=== PATIENT | female | born 2000 ===

== ENCOUNTER → 2020-10-01 10:43 | Outpatient (BNVA) | payer OTHER, SELFPAY | PROVIDERS: PCP Internal Medicine; Referring Provider Internal Medicine; Visit Provider Advanced Practice Midwife | DX: Z30.431 Encounter for routine checking of intrauterine contraceptive device (principal); K42.9 Umbilical hernia without obstruction or gangrene | CPT/HCPCS: 99212 ==

== ENCOUNTER → 2020-11-13 14:53 | Outpatient (BNVA) | payer OTHER, SELFPAY | PROVIDERS: Visit Provider Advanced Practice Midwife | DX: Z30.431 Encounter for routine checking of intrauterine contraceptive device (principal) | CPT/HCPCS: 99212 ==

== ENCOUNTER → 2021-02-14 11:27 | Outpatient (BNVA) | payer OTHER, SELFPAY | PROVIDERS: PCP Internal Medicine; Visit Provider Advanced Practice Midwife | DX: Z30.431 Encounter for routine checking of intrauterine contraceptive device (principal) | CPT/HCPCS: 99212 ==

== ENCOUNTER 2021-03-03 11:57 | Outpatient (REF) | payer OTHER, SELFPAY ==
--- NOTE | ~2021-03-03 | US_ITS ---
EXAMINATION: US PELVIS, COMPLETE CLINICAL INFORMATION: Evaluate IUD position. COMPARISON: None. TECHNIQUE: Transabdominal and transvaginal imaging was performed. FINDINGS: LMP: 01/25/2021 Uterus is anteverted , measuring 7.2 x 4.1 x 5.2 cm. No focal uterine lesion. IUD present, which appears to be appropriately positioned within the endometrial canal. Endometrial thickness 0.4 cm. Right ovary measures 3.2 x 2.3 x 2.1 cm. Volume 8.1 mL.. Left ovary measures 3.3 x 2 x 2.2 cm. Volume 7.6 mL. Bilateral ovaries appear unremarkable. Follicles present. Small free fluid in the cul-de-sac. US/US pelvic and transvaginal IMPRESSION: IUD present, which appears to be appropriately positioned within the endometrial canal. Bilateral ovaries appear unremarkable.
== END 2021-03-03 11:58 | disposition home or self-care (01) ==
LOC: HO.US 11:57
PROVIDERS: PCP Internal Medicine; Visit Provider Advanced Practice Midwife
DX: Z30.431 Encounter for routine checking of intrauterine contraceptive device (principal)
CPT/HCPCS: 76830; 76856

== ENCOUNTER 2022-01-15 14:09 | Outpatient (REF) | payer OTHER, SELFPAY ==
[2022-01-16 00:59] LABS: CT PCR NOT DETECTED (Not Detect.); NG PCR NOT DETECTED (Not Detect.)
[2022-01-16 12:16] LABS: BV Int Neg Control Negative (Negative); BV Int Pos Control Positive (Positive)
== END 2022-01-15 14:10 | disposition home or self-care (01) ==
LOC: HO.LAB 14:09
PROVIDERS: PCP Physician Assistant; Visit Provider Advanced Practice Midwife
DX: N76.0 Acute vaginitis (principal)
CPT/HCPCS: 81003; 87480; 87491; 87510; 87591; 87660; 99212

== ENCOUNTER 2022-01-22 12:19 | Outpatient (REF) | payer OTHER, SELFPAY ==
[2022-01-22 13:43] LABS: Hematocrit 32.9 % (37.0-47.0); Hemoglobin 9.7 g/dl (12.0-16.0); Mean Corpuscular HGB Conc 29.5 g/dl (31.0-35.0); Mean Corpuscular Volume 71.2 fL (80.0-98.0); Mean Platelet Volume 12.7 fL (9.4-12.3); Platelet Count 280 X10*3/uL (160-400); Red Blood Count 4.62 X10*6/uL (4.20-5.50); Red Cell Distribution Width 16.4 % (11.0-16.0); White Blood Count 7.2 X10*3/uL (4.8-10.8)
[2022-01-22 13:52] LABS: Estimated Average Glucose 105 mg/dL; Hemoglobin A1c % 5.3 %
[2022-01-22 14:23] LABS: Ferritin 6 ng/mL (10-122)
[2022-01-22 14:28] LABS: Alanine Aminotransferase 14 U/L (0-31); Albumin Level 4.7 g/dL (3.5-5.0); Alkaline Phosphatase 77 U/L (39-117); Anion Gap 13 (12-20); Aspartate Amino Transferase 15 U/L (5-31); Bilirubin Total 1.9 mg/dL (0.0-1.0); Blood Urea Nitrogen 15 mg/dL (9-16); Calcium 9.5 mg/dL (8.4-10.2); Carbon Dioxide 21 mmol/L (22-29); Chloride 107 mmol/L (96-108); Estimated Glomerular Filt Rate > 60; Glucose Fasting 79 mg/dL (60-99); Iron 34 mcg/dL (30-160); Potassium 4.4 mmol/L (3.3-5.1); Sodium 137 mmol/L (135-145); Total Protein 7.9 g/dL (6.5-8.0)
[2022-01-22 14:52] LABS: Percent Iron Saturation 7 % (15-50); Total Iron Binding Capacity 458 mcg/dL (228-428); Unsaturated Iron Binding 424 ug/dL
== END 2022-01-22 12:20 | disposition home or self-care (01) ==
LOC: HO.LAB 12:19
PROVIDERS: PCP Physician Assistant; Visit Provider Physician Assistant
DX: D50.9 Iron deficiency anemia, unspecified (principal); R63.4 Abnormal weight loss
CPT/HCPCS: 36415; 80053; 82728; 83036; 83540; 84443; 85027

== ENCOUNTER 2022-02-18 15:19 | Outpatient (REF) | payer OTHER, SELFPAY ==
[2022-02-19 07:54] LABS: CT PCR NOT DETECTED (Not Detect.); NG PCR NOT DETECTED (Not Detect.)
[2022-02-19 09:43] LABS: BV Int Neg Control Negative (Negative); BV Int Pos Control Positive (Positive)
== END 2022-02-18 15:20 | disposition home or self-care (01) ==
LOC: HO.LAB 15:19
PROVIDERS: PCP Physician Assistant; Visit Provider Advanced Practice Midwife
DX: Z01.419 Encounter for gynecological examination (general) (routine) without abnormal findings (principal); N92.0 Excessive and frequent menstruation with regular cycle; Z11.3 Encounter for screening for infections with a predominantly sexual mode of transmission; Z11.8 Encounter for screening for other infectious and parasitic diseases; Z88.1 Allergy status to other antibiotic agents; Z88.0 Allergy status to penicillin
CPT/HCPCS: 87480; 87491; 87510; 87591; 87660; 88142

== ENCOUNTER 2022-03-31 13:39 | Outpatient (REF) | payer OTHER, SELFPAY ==
[2022-03-31 14:24] LABS: Hematocrit 37.7 % (37.0-47.0); Hemoglobin 11.3 g/dl (12.0-16.0); Mean Corpuscular Hemoglobin 23.1 pg (27.0-33.0); Mean Corpuscular Volume 77.1 fL (80.0-98.0); Mean Platelet Volume 12.5 fL (9.4-12.3); Platelet Count 267 X10*3/uL (160-400); Red Blood Count 4.89 X10*6/uL (4.20-5.50); Red Cell Distribution Width 18.7 % (11.0-16.0)
[2022-03-31 14:47] LABS: Iron 63 mcg/dL (30-160); Percent Iron Saturation 19 % (15-50); Total Iron Binding Capacity 339 mcg/dL (228-428); Unsaturated Iron Binding 276 ug/dL
[2022-03-31 15:47] LABS: Appearance Urine HAZY; Color Urine DK YELLOW; Glucose Urine UA NEG (NEG); Leukocyte Esterase Urine TRACE (NEG); Nitrite Urine NEG (NEG); PH 5.5 (5.0-8.0); Specific Gravity - Urine >= 1.030 (1.005-1.025); Urine Blood NEG (NEG); Urine Ketones 40 MG/DL (NEG); Urine Protein TRACE MG/DL (NEG-TRACE)
[2022-03-31 16:13] LABS: WBC Urine 0 /HPF (0-4)
[2022-03-31 16:14] LABS: Mucus Urine 4+ /LPF; Renal Epithelial Cells Urine 2+ /LPF; Squamous Epithelial Cell Urine 2+ /LPF
== END 2022-03-31 13:40 | disposition home or self-care (01) ==
LOC: HO.LAB 13:39
PROVIDERS: PCP Physician Assistant; Visit Provider Physician Assistant
DX: D50.9 Iron deficiency anemia, unspecified (principal)
CPT/HCPCS: 36415; 81001; 83540; 85027

== ENCOUNTER 2022-09-08 15:27 | Outpatient (REF) | payer OTHER, SELFPAY ==
[2022-09-09 19:04] LABS: CT PCR NOT DETECTED (Not Detect.); NG PCR NOT DETECTED (Not Detect.)
[2022-09-10 09:34] LABS: BV Int Neg Control Negative (Negative); BV Int Pos Control Positive (Positive)
== END 2022-09-08 15:28 | disposition home or self-care (01) ==
LOC: HO.LNP 15:27
PROVIDERS: PCP Physician Assistant; Visit Provider Advanced Practice Midwife
DX: Z30.432 Encounter for removal of intrauterine contraceptive device (principal); N92.0 Excessive and frequent menstruation with regular cycle; Z20.2 Contact with and (suspected) exposure to infections with a predominantly sexual mode of transmission
CPT/HCPCS: 58301; 87480; 87491; 87510; 87591; 87660

== ENCOUNTER 2024-08-08 14:53 | Outpatient (AMB) | payer OTHER, SELFPAY ==
--- NOTE | 2024-08-08 14:55 | MHC.PC.OV ---
Vital Signs 08/08/24 14:56 Height 5 ft 4 in Weight 122 lb BMI 20.9 BP 110/70 Blood Pressure Location Lt brachial Position Sitting Pulse 68 Pulse Source Pulse Oximeter Pulse Oximetry (%) 98 Oxygen Delivery Method Room Air Intake Visit Reasons: Physical Exam Intake Note: Patient here for a Physical Exam Gore Stitcher Required: No Accompanied by: Self / Same As Patient Allergies Penicillins [PENICILLINS] Allergy (Severe, Verified 08/08/24 15:23) GLOTTAL EDEMA, HIVES amoxicillin [AMOXICILLIN] Allergy (Unknown, Verified 08/08/24 15:23) HIVES Medication List - Last Reconciled 08/08/24 by David Garcia PA-C No Known Home Meds Tobacco use date assessed: 08/08/24 Dental Screening Dental Screen Date: 08/08/24 Did you have a dental visit in the last 12 months?: Yes Did you have a dental problem in the last 6 months where you did not have access to dental care?: No Was dental information given to patient?: Patient has dentist HPI Physical Exam HPI Details Patient is a 24-year-old female here today for routine annual physical.. Patient will be found tearing [facility] and needs paperwork filled out. . Vaccines: UTD with Tdap , UTD with COVID vaccine SUPERVISOR BLAST FURNACE: Does See a SUPERVISOR BLAST FURNACE at [facility] Medical History (Updated 08/08/24 @ 16:40 by David Garcia PA-C) Protein in urine Learning disability Family history of neurological developmental delay Infection of nailbed of toe of right foot Infection of nailbed of toe of left foot Umbilical hernia Encounter for general adult medical examination with abnormal findings Surgical History History of delivery History of tonsillectomy Family History Father No problems noted. Mother No problems noted. Maternal Grandfather No problems noted. Maternal Grandmother CVD (cardiovascular disease) Diabetes mellitus Glaucoma, narrow-angle Maternal Grandfather No problems noted. Paternal Grandfather Diabetes mellitus Paternal Grandmother No problems noted. Maternal Aunt Breast cancer Other Mental health disorder Substance use disorder Social History (Updated 08/08/24 @ 15:30 by David Garcia PA-C) Housing: Apartment Alcohol intake: current Alcohol intake frequency: holidays/special occasions only Patient Tobacco Use Status: Never used Tobacco e-Cigarette/Vaping Use: Never Used Second Hand Smoke Exposure: No Substance Use Type: Marijuana service: No Current occupational status: unemployed and disabled Gender identity: Female Cognitive needs: No Hearing needs: No Vision needs: Yes (glasses) Female Reproductive History Menstrual Age of Menarche: 8 Questionnaire PHQ-9 Over the last 2 weeks, how often have you been bothered by any of the following problems? 1. Little interest or pleasure in doing things: not at all 2. Feeling down, depressed, or hopeless: not at all 3. Trouble falling or staying asleep, or sleeping too much: nearly every day 4. Feeling tired or having little energy: more than half the days 5. Poor appetite or overeating: not at all 6. Feeling bad about yourself - or that you are a failure or have let yourself or your family down: not at all 7. Trouble concentrating on things, such as reading the newspaper or watching television: several days 8. Moving or speaking so slowly that other people could have noticed. Or the opposite - being so fidgety or restless that you have been moving around a lot more than usual: not at all 9. Thoughts that you would be better off or of hurting yourself in some way: not at all Total score: 6 Depression Screening Interpretation: Positive Depression Screening Follow-up: Existing condition Depression Screening Done: Yes 90775 - PHQ-9 Billing: Yes Source: Developed by Drs. Reymundo Weeks, Isabel Donnelly, Igor Mcgarry and colleagues, with an educational primo from [employer]. Thrive Questionnaire Date Thrive assessed: 08/08/24 I am a: Patient What is your living situation today?: I have a steady place to live Within the past 12 months, did the food you bought not last and you didn't have the money to get more?: Never true Within the past 12 months, did you worry whether your food would run out before you got money to buy more?: Never true Do you have trouble paying for medicines?: Yes Do you have trouble getting transportation to medical appointments?: No Do you have trouble paying your heating and electricity bill?: No Do you have trouble taking care of your child, family member or friend?: No Do you have trouble with day-to-day activities such as bathing, preparing meals, shopping, managing finances, etc.?: No Are you currently unemployed and looking for a job?: I choose not to answer this question Are you interested in more education?: I choose not to answer this question Please select the resources that you would like help with: None Currently or been in a relationship where the following occur: I choose not to answer THRIVE Score: 0 AUDIT C Alcohol Use Questionnaire (AUDIT-C) 1. How often do you have a drink containing alcohol?: Monthly or less 2. How many drinks containing alcohol do you have on a typical day when you are drinking?: 1 or 2 3. How often do you have six or more drinks on one occasion?: Never Total Score: 1 SEN-7 AMB Questionnaire SEN-7 Date SEN - 7 assessed: 08/08/24 Feeling nervous, anxious, or on edge: 0 = Not at all Not being able to stop or control worryin = Not at all Worrying too much about different things: 0 = Not at all Trouble relaxin = Not at all Being so restless that it is hard to sit still: 0 = Not at all Becoming easily annoyed or irritable: 0 = Not at all Feeling afraid as if something awful might happen: 0 = Not at all Total SEN-7 score (0-4 normal; 5-9 mild; 10-14 moderate; 15-21 severe): 0 Source: Developed by Drs. Reymundo Weeks, Isabel Donnelly, Igor Mcgarry and colleagues, with an educational primo from [employer]. SEN-7 Assessment Billing SEN-7 Assessment Tool: SEN-7 Assessment 64382 Review of Systems Const Denies body aches, Denies chills, Denies excessive sweating, Denies fatigue, Denies fever(s) and Denies headache(s) Eyes Denies blurry vision ENT Denies dysphagia, Denies vertigo, Denies dizziness, Denies headache(s), Denies hearing loss and Denies tinnitus Card Denies chest pain, Denies chest pain with activity, Denies syncope, Denies irregular heart rhythm and Denies dyspnea Resp Denies chest congestion, Denies cough, Denies hemoptysis, Denies dyspnea and Denies wheezing GI Denies abdominal pain, Denies melena, Denies hematochezia, Denies coffee ground emesis, Denies dysphagia, Denies diarrhea, Denies nausea and Denies vomiting Denies urinary frequency, Denies dysuria, Denies urinary hesitancy and Denies urinary urgency Musc Denies arthralgias, Denies limited range of motion, Denies muscle cramps and Denies muscle weakness Skin/Breast Denies rash and Denies skin ulcer Neuro Denies Abnormal speech present, Denies confusion, Denies vertigo, Denies dizziness, Denies syncope, Denies headache(s), Denies memory loss and Denies seizure-like activity Psych Denies anxiety, Denies confusion, Denies depression, Denies memory loss, Denies panic attacks and Denies paranoia Endo Denies excessive sweating, Denies fatigue, Denies flushing, Denies polydipsia and Denies polyuria Aller/Immun Denies wheezing Physical exam (Primary Care) Vital Signs: Last Vital Signs Pulse 68 08/08/24 14:56 BP 110/70 08/08/24 14:56 Pulse Ox 98 08/08/24 14:56 Oxygen Delivery Method Room Air 08/08/24 14:56 BMI result Body Mass Index 20.9 Tobacco/Smoking Status: Tobacco use Status Tobacco use date assessed 08/08/24 08/08/24 15:02 Patient Tobacco Use Status Never used Tobacco 08/08/24 15:30 e-Cigarette/Vaping Use Never Used 08/08/24 15:30 PHQ-9: PHQ-9 Score PHQ-9: Total score 6 08/08/24 15:44 Depression Screening Interpretation: Positive Depression Screening Follow-up: Existing condition Thrive Assessment: Date of Thrive Assessment Date Thrive assessed 08/08/24 08/08/24 15:02 Currently or been in a relationship where the following occur: I choose not to answer Const General: cooperative, comfortable, no acute distress, alert and awake; No confusion Orientation/consciousness: oriented to person, oriented to place, patient oriented x3 and No confusion HENMT Head: Yes normocephalic Ears: external ears normal and TM's normal bilaterally Face and sinus: No sinus tenderness Mouth: Normal oral and palatal mucosa present and tongue normal Teeth and gingiva: dentition normal and gingiva normal Throat: Yes posterior oropharynx normal, Yes tonsils normal and Yes uvula midline Eyes Conjunctivae: conjunctivae normal Sclerae: sclerae normal Pupils: Equal, round and reactive pupils present EOM: EOMs intact bilaterally Direct Ophthalmoscopy: No no photophobia Neck Neck: Yes no lymphadenopathy, No tender and Yes no JVD Thyroid: Thyroid normal Carotids: no bruits Chest Chest palpation & inspection: no tenderness Resp Effort & Inspection: normal respiratory effort, no audible wheezes, not labored and no stridor Auscultation: no crackles, no rales, no rhonchi and no wheezes Cardio Jugular venous distension: no JVD Rate: regular rate, not bradycardic and not tachycardic Rhythm: regular rhythm Bruits: no carotid bruits Peripheral pulses: Peripheral pulses 2+ throughout GI Inspection: Yes normal to inspection, No abdominal wall ecchymosis and No visible herniation Palpation (GI): Soft to palpation, nontender, no guarding, not rigid and No hepatosplenomegaly present Auscultation: normoactive bowel sounds General: Yes no CVA tenderness Back/Spine/Pelvis Back: no CVA tenderness and No back tenderness Cervical Spine: cervical ROM normal Thoracic/Lumbar Spine: thoracic and lumbar spine normal to inspection, straight leg raise negative bilaterally, No thoraco-lumbar ROM limited and No lumbar spinal tenderness Skin Lesions: no lesions Rashes: no rashes Wounds: no wounds Neuro General: oriented to person, oriented to place, patient oriented x3, CN's II-XI intact bilaterally and No confusion Cranial nerves: Yes Equal, round and reactive pupils present and Yes Normal accommodation reflex present Cognition (Neuro): normal cognition Speech: No Abnormal speech present Gait exam (Neuro): Normal gait present Motor exam (neuro): 5/5 motor strength present throughout Extrem Right upper extremity: full ROM; no cyanosis Left upper extremity: full ROM; no cyanosis Right lower extremity: no edema Left lower extremity: no edema Psych Appearance: grossly normal Mental Status: mental status grossly normal Affect: normal affect Attitude: cooperative Thought process: Normal thought process present Office Procedures Flu Questionnaire Does the patient have a severe egg allergy?: No Does the patient have severe life threatening allergies?: No Does the patient have a fever or illness today?: No Has the patient ever had Guillain-[place] Syndrome?: No Has the patient ever had any past reaction to a flu shot?: No Immunizations Fluarix Triv [id number] (PF) 45 mcg (15 mcg x 3)/0.5 mL IM syringe Performing Provider: David Garcia PA-C Per[facility] [place] [facility] Administered by: SARA Jones on 08/08/24 15:43 Dose Route Admin Location Dispensed Lot Number Expiration Date [facility] Hand Sole Sewer 0.5 mL IM Right Deltoid 0.5 mL [id number] 05/07/25 [id number] Subtext VIS Given Date VIS Provided VIS Publication Date 08/08/24 Single Vaccine 21 Eligibility Eligibility Date Funding Source Not [facility] Eligible 08/08/24 Private Coding Level of Care Code Est Pt Prev Care 18-39y(80175) Diagnoses Annual physical exam Z00.00 History of MMR vaccination Z92.29 Screening-pulmonary TB Z11.1 Screening for diabetes mellitus (DM) Z13.1 Umbilical hernia with obstruction, without gangrene K42.0 Obstruction and gangrene presence: with obstruction but without gangrene Iron deficiency anemia, unspecified iron deficiency anemia type D50.9 Anemia type: iron deficiency Iron deficiency anemia type: unspecified iron deficiency Additional Codes SEN-7 Assessment Billing - SEN-7 Assessment Tool: SEN-7 Assessment 29188 ([id number]) Assessment & Plan Assessment & Plan (1) Annual physical exam: Code(s): Z00.00 - Encounter for general adult medical examination without abnormal findings Category: Medical Plan: As per HPI (2) History of MMR vaccination: Code(s): Z92.29 - Personal history of other drug therapy Category: Medical Plan: Will be starting a program and needs documentation of a MMR-V immunity (3) Screening-pulmonary TB: Code(s): Z11.1 - Encounter for screening for respiratory tuberculosis Category: Medical Plan: Patient in need for TB screening (4) Screening for diabetes mellitus (DM): Code(s): Z13.1 - Encounter for screening for diabetes mellitus Category: Medical Plan: as per hpi (5) Umbilical hernia: Code(s): K42.9 - Umbilical hernia without obstruction or gangrene Category: Medical Qualifiers: Obstruction and gangrene presence: with obstruction but without gangrene Qualified Code(s): K42.0 - Umbilical hernia with obstruction, without gangrene Plan: Patient has a chronic umbilical hernia secondary to her . She is interested in seeing general surgeon for surgical fix. On the other hand she is interested in getting again and has a likely risk for reherniation during . 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 Will recheck CBC Orders: Orders Comprehensive [place]. Panel Fast Today Z13.1 - Encounter for screening for diabetes mellitus MMR IgG Measles Mumps Rubella Today Z92.29 - Personal history of other drug therapy Varicella IgG Antibody Today Z92.29 - Personal history of other drug therapy Complete Blood Count no Diff Today Z13.1 - Encounter for screening for diabetes mellitus Influenza [id number] Immunization Today Z23 - Encounter for immunization T Spot TB Today Z11.1 - Encounter for screening for respiratory tuberculosis
[2024-08-08 14:56] VITALS: BP 110/70; PULSE 68; O2SAT 98; BMI 20.9
== END 2024-08-08 15:44 | disposition home or self-care (01) ==
PROVIDERS: PCP Physician Assistant; Visit Provider Physician Assistant
DX: Z00.00 Encounter for general adult medical examination without abnormal findings (principal); Z92.29 Personal history of other drug therapy; Z11.1 Encounter for screening for respiratory tuberculosis; Z13.1 Encounter for screening for diabetes mellitus; K42.0 Umbilical hernia with obstruction, without gangrene; D50.9 Iron deficiency anemia, unspecified; Z23 Encounter for immunization

== ENCOUNTER → 2024-08-08 14:53 | Outpatient (BNVA) | payer OTHER, SELFPAY | PROVIDERS: PCP Physician Assistant; Visit Provider Physician Assistant | DX: Z00.01 Encounter for general adult medical examination with abnormal findings (principal); Z23 Encounter for immunization; K42.0 Umbilical hernia with obstruction, without gangrene; D50.9 Iron deficiency anemia, unspecified; Z92.29 Personal history of other drug therapy | CPT/HCPCS: 90471; 90656; 96127 ==

== ENCOUNTER 2024-08-10 09:34 | Outpatient (REF) | payer OTHER, SELFPAY ==
[2024-08-10 10:27] LABS: Hematocrit 37.8 % (37.0-47.0); Hemoglobin 11.7 g/dl (12.0-16.0); Mean Corpuscular Hemoglobin 24.5 pg (27.0-33.0); Mean Corpuscular Volume 79.2 fL (80.0-98.0); Mean Platelet Volume 12.7 fL (9.4-12.3); Platelet Count 281 X10*3/uL (160-400); Red Blood Count 4.77 X10*6/uL (4.20-5.50); Red Cell Distribution Width 15.4 % (11.0-16.0); White Blood Count 6.3 X10*3/uL (4.8-10.8)
[2024-08-10 11:00] LABS: Alanine Aminotransferase 13 U/L (0-31); Albumin Level 4.8 g/dL (3.5-5.0); Alkaline Phosphatase 85 U/L (39-117); Anion Gap 12 (12-20); Aspartate Amino Transferase 16 U/L (5-31); Bilirubin Total 1.3 mg/dL (0.0-1.0); Blood Urea Nitrogen 22 mg/dL (9-16); Calcium 9.8 mg/dL (8.4-10.2); Carbon Dioxide 24 mmol/L (22-29); Chloride 109 mmol/L (96-108); Estimated Glomerular Filt Rate > 60; Glucose Fasting 94 mg/dL (60-99); Potassium 3.9 mmol/L (3.3-5.1); Sodium 141 mmol/L (135-145); Total Protein 8.1 g/dL (6.5-8.0)
[2024-08-12 02:10] LABS: Rubella IgG Antibody 1.14 Index
[2024-08-12 23:28] LABS: TS Negative Control Passed; TS Panel A 0; TS Panel B 0; TS Positive Control Passed; TSpotTB Negative (Negative)
== END 2024-08-10 09:35 | disposition home or self-care (01) ==
LOC: HO.LAB 09:34
PROVIDERS: PCP Physician Assistant; Visit Provider Physician Assistant
DX: Z92.29 Personal history of other drug therapy (principal); Z11.1 Encounter for screening for respiratory tuberculosis; Z13.1 Encounter for screening for diabetes mellitus
CPT/HCPCS: 36415; 80053; 85027; 86481; 86735; 86762; 86765; 86787

== ENCOUNTER 2024-11-17 12:46 | Outpatient (AMB) | payer OTHER, SELFPAY ==
[2024-11-17 13:15] VITALS: BP 112/68; BMI 22.5
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
== END 2024-11-17 14:19 | disposition home or self-care (01) ==
LOC: HO.HWSM 12:46
PROVIDERS: PCP Physician Assistant; Visit Provider Advanced Practice Midwife
DX: Z01.419 Encounter for gynecological examination (general) (routine) without abnormal findings (principal); Z65.4 Victim of crime and terrorism; Y09 Assault by unspecified means; Z97.5 Presence of (intrauterine) contraceptive device; Z91.410 Personal history of adult physical and sexual abuse; F43.10 Post-traumatic stress disorder, unspecified; F32.A Depression, unspecified
CPT/HCPCS: 99395; 99459

== ENCOUNTER 2024-11-17 12:46 | Outpatient (REF) | payer OTHER, SELFPAY ==
[2024-11-18 04:12] LABS: CT PCR NOT DETECTED (Not Detect.); NG PCR NOT DETECTED (Not Detect.)
[2024-11-18 09:48] LABS: Bacterial Vaginosis PCR POSITIVE (Negative); Candida Group PCR NOT DETECTED (Not Detect); Candida glab krusei PCR NOT DETECTED (Not Detect); Trichomonas vaginalis PCR NOT DETECTED (Not Detect)
== END 2024-11-17 12:47 | disposition home or self-care (01) ==
LOC: HO.LAB 12:46
PROVIDERS: PCP Physician Assistant; Visit Provider Advanced Practice Midwife
DX: Z01.419 Encounter for gynecological examination (general) (routine) without abnormal findings (principal); F43.10 Post-traumatic stress disorder, unspecified; F32.A Depression, unspecified; K42.0 Umbilical hernia with obstruction, without gangrene; Z91.410 Personal history of adult physical and sexual abuse; Z65.4 Victim of crime and terrorism; Z97.5 Presence of (intrauterine) contraceptive device; Z20.2 Contact with and (suspected) exposure to infections with a predominantly sexual mode of transmission
CPT/HCPCS: 81515; 87491; 87591; 99459

== ENCOUNTER 2024-11-17 14:23 | Outpatient (REF) | payer OTHER, SELFPAY ==
[2024-11-18 08:20] LABS: HIV AB/AG Nonreactive (Nonreactive); HIV Num 1 0.07 S/CO (0.00-0.99); Hepatitis B Surface Antigen Negative (Negative); ~Hepatitis C Antibody Nonreactive (Nonreactive)
[2024-11-18 08:35] LABS: Syphilis Screen Nonreactive (Nonreactive)
== END 2024-11-17 14:24 | disposition home or self-care (01) ==
LOC: HO.HHCL 14:23
PROVIDERS: Visit Provider Advanced Practice Midwife
DX: Z01.419 Encounter for gynecological examination (general) (routine) without abnormal findings (principal); N89.8 Other specified noninflammatory disorders of vagina; K42.0 Umbilical hernia with obstruction, without gangrene; F43.10 Post-traumatic stress disorder, unspecified; F32.A Depression, unspecified; Z11.3 Encounter for screening for infections with a predominantly sexual mode of transmission; Z97.5 Presence of (intrauterine) contraceptive device; Z91.410 Personal history of adult physical and sexual abuse; Z20.2 Contact with and (suspected) exposure to infections with a predominantly sexual mode of transmission
CPT/HCPCS: 36415; 81515; 86780; 86803; 87340; 87389; 87491; 87591; 88175; 99395; 99459

== ENCOUNTER 2024-11-17 16:14 | Outpatient (REF) | payer OTHER, SELFPAY | END 2024-11-17 16:15 | disposition home or self-care (01) | LOC: HO.LNP 16:14 | PROVIDERS: Visit Provider Advanced Practice Midwife | DX: Z13.89 Encounter for screening for other disorder (principal) | CPT/HCPCS: 88175 ==